=== PATIENT | female | born 1985 | race Caucasian/White ===

== ENCOUNTER → 2022-07-01 07:55 | Outpatient (BNVA) | payer MEDICAID, SELFPAY | PROVIDERS: Visit Provider Obstetrics & Gynecology | DX: N92.0 Excessive and frequent menstruation with regular cycle (principal) | CPT/HCPCS: 76830 ==

== ENCOUNTER → 2022-08-30 09:23 | Outpatient (BNVA) | payer MEDICAID, SELFPAY | PROVIDERS: Visit Provider Obstetrics & Gynecology | DX: N92.0 Excessive and frequent menstruation with regular cycle (principal) | CPT/HCPCS: 88305 ==

== ENCOUNTER → 2022-11-22 10:00 | Outpatient (BNVA) | payer MEDICAID, SELFPAY | PROVIDERS: Visit Provider Obstetrics & Gynecology | DX: Z01.818 Encounter for other preprocedural examination (principal) | CPT/HCPCS: 87624 ==

== ENCOUNTER 2022-12-07 09:06 | Observation (INO) | payer MEDICAID, SELFPAY ==
[2022-12-03 09:11] VITALS: BMI 36.6
--- NOTE | 2022-12-03 09:27 | ANES.PREANE2 ---
Pre-Anesthetic Assessment Height/Weight: Height 1.65 m Weight 99.79 kg Operation Date: 12/07/22 07:00 Proposed Procedures p Laparoscopic assisted vaginal hysterectomy 73632,N81.4(Not Applicable) - Ila Yousif MD Familial anesthetic complications: None Social No alcohol and No tobacco Exam alert, oriented x 3, clear to auscultation bilaterally and regular rate & rhythm Airway Mallampati: Class I Dentition: full Metabolic Morbid Obesity Anesthetic Plan ASA status: 2 Anesthesia: General Risk of > 500 ml blood loss (7ml/kg in children): No Medications/Allergies Home Medications Medication Instructions Recorded Confirmed Last Taken Type calcium 600 mg-D3 800 unit-mag11 1 tab PO DAILY 06/08/22 12/03/22 12/02/22 History 50 [id number]-tye-s.borat tablet diphenhydramine 25 1 tab PO Q6H PRN Pain 06/08/22 12/03/22 Unknown History mg-acetaminophen 500 mg tablet (Tylenol PM Extra Strength) bupropion HCl 300 mg 24 hr tablet, 300 mg PO QAM 12/03/22 12/03/22 12/02/22 History extended release (Wellbutrin XL) Allergies Allergy/AdvReac Type Severity Reaction Status Date / Time ibuprofen Allergy Intermediate hive Verified 08/30/22 08:28 [facility] Anesthesia Medical History Hypertension Ovarian cyst Surgical History History of bilateral salpingectomy (~2018) History of exploratory laparotomy History of gastric bypass Family History Mother Breast cancer Grandmother Breast cancer paternal Diabetes Hypertension Stroke Grandfather No problems noted. Denies family history of Colon cancer Ovarian cancer Heart disease Hypercholesteremia Uterine cancer Thyroid disease Female Reproductive History Date of last menstrual period: 11/07/22 Data Anesthesia Cardiac Studies: No Data to Display
[2022-12-07] VITALS (18 sets, daily range): BP systolic 104–140; BP diastolic 54–94; PULSE 54–85; RESP 16–18; TEMP 36.2–36.9; O2SAT 94–99
[2022-12-07] MEDS: sodium chloride 0.9% 1,000 ML 30 ML IV (06:32)
[2022-12-07] MEDS: acetaminophen 1,000 MG/100 ML PIGGYBACK 400 MG IV (06:33)
[2022-12-07] MEDS: gabapentin 300 mg Capsule PO (06:35)
[2022-12-07] MEDS: phenazopyridine 100 mg Tablet 200 MG PO ×3 (06:35→22:03)
[2022-12-07] MEDS: scopolamine 1.5 Patch 1 PATCH TRANSDERMA (06:36)
[2022-12-07 06:47] LABS: Basophils % 0.5 %; Eosinophils # 0.2 10^3/uL (0.0-0.8); Eosinophils % 3.1 %; Hematocrit 42.4 % (37.0-47.0); Hemoglobin 13.4 g/dL (11.5-15.3); Lymphocytes # 1.4 10^3/uL (0.8-4.8); Mean Corpuscular HGB Conc 31.6 g/dL (30.0-36.0); Mean Corpuscular Hemoglobin 25.6 pg (28.0-34.0); Mean Corpuscular Volume 80.9 fl (81-99); Mean Platelet Volume 9.8 fL (7.4-10.4); Monocytes # 0.5 10^3/uL (0.2-0.9); Monocytes % 6.9 %; Neutrophils # 4.37 10^3/uL (1.8-7.7); Neutrophils % 67.2 %; Nucleated Red Blood Cells % 0 %; Platelet Count 296 10^3/cmm (130-400); Red Blood Count 5.24 10^6/uL (4.1-5.3); Red Cell Distribution Width 11.9 % (12.1-15.1); White Blood Count 6.5 10^3/uL (4.0-10.0)
--- NOTE | 2022-12-07 07:06 | W.PM.OPSUD ---
Surgery/Procedure H&P Update DATE OF PROCEDURE: December 07, 2022 DATE H&P PERFORMED: 12/02/22 H&P UPDATE INFORMATION: I have reviewed H&P completed within last 30 days, I have examined patient prior to procedure and No changes to prior documentation PREOP DIAGNOSIS: uterine prolapse, AUB, pelvic pain PLANNED PROCEDURE: Operation Date: 12/07/22 07:00 Proposed Procedures p Laparoscopic assisted vaginal hysterectomy 57467,N81.4(Not Applicable) - Ila Yousif MD Related Problem List Diagnoses (1) Dysmenorrhea: (2) Hirsutism: (3) Heavy menstrual bleeding:
[2022-12-07 07:07] LABS: Anion Gap 14.1 (5-19); Blood Urea Nitrogen 12 mg/dL (6-20); Calcium 9.4 mg/dL (8.5-10.5); Carbon Dioxide 26 mmol/L (22-29); Chloride 107 mmol/L (98-107); Glomerular Filtration Rate 80.3 mL/min (90-130); Glucose 97 mg/dL (65-115); Osmolality Calculated 296 mOsm/kg (285-295); Potassium 4.1 mmol/L (3.5-5.1); Sodium 143 mmol/L (136-145)
[2022-12-07] MEDS: ceFAZolin 2,000 MG in sodium chloride 0.9% (plus) 50 ML 100 MG IV ×3 (07:07→23:11)
[2022-12-07 07:51] LABS: OR HCG Qualitative Urine Negative (Negative)
[2022-12-07] MEDS: vasopressin 20 unit/mL INJ INJECTION (07:54)
--- NOTE | 2022-12-07 08:36 | P.ANESUD_ITS ---
Pre-Anesthetic Update Pre-Anesthetic Assessment: Date of Surgery/Procedure: 12/07/22 Preop Ana gnosis: uterine prolapse, AUB, pelvic pain Proposed Procedure: Operation Date: 12/07/22 07:00 Proposed Procedures p Laparoscopic assisted vaginal hysterectomy 45192,N81.4(Not Applicable) - Ila Yousif MD Any changes to Pre-Anesthetic Assessment?: No Last Intake: Intake Last Liquid Date 12/06/22 Last Liquid Time 23:00 Last Solid Date 12/06/22 Last Solid Time 20:00 Labs Last 48hrs: Short CBC 12/07/22 Range/Units 06:30 WBC 6.5 (4.0-10.0) 10^3/ uL Hgb 13.4 (11.5-15.3) g/dL Hct 42.4 (37.0-47.0) % MCV 80.9 L (81-99) fl Plt Count 296 (130-400) 10^3/c mm Neut % (Auto) 67.2 % Neut # (Auto) 4.37 (1.8-7.7) 10^3/u L BMP 12/07/22 06:30 Sodium 143 Potassium 4.1 Chloride 107 Carbon Dioxide 26 BUN 12 Creatinine 0.8 Glucose 97 Calcium 9.4 Blood Bank 12/07/22 06:30 Blood Type O Negative Rho(D) Type Negative Antibody Screen Negative Vitals: Temperature 97.8 F 12/07/22 06:26 Temperature Source Temporal Artery S can 12/07/22 06:26 Pulse Rate 65 12/07/22 06:26 Respiratory Rate 18 12/07/22 06:26 Blood Pressure 130/93 12/07/22 06:26 Blood Pressure Liz n 105 12/07/22 06:26 Pulse Oximetry 98 12/07/22 06:26 Oxygen Delivery Me thod Room Air, Nasal C annula 12/07/22 06:26 Exam: Pre-Anes Outpt Exam: alert, oriented x 3, clear to auscultation bilaterally and regular rate & rhythm Cardiac Studies: No Data to Display
--- NOTE | 2022-12-07 09:19 | PM.OP ---
Operative Report Date of procedure: December 07, 2022 Pre-op diagnosis: Preop Diagnosis uterine prolapse, AUB, pelvic pain Post-op diagnosis: same Post-op findings: 10 week sized uterus, normal appearing ovaries Procedure done: LAVH, cystoscopy Specimens removed/disposition: uterus to pathology Surgeon: Ila Yousif Anesthesia: General Estimated blood loss (mL): 300 IV fluids (mL): 1,300 Urine output (mL): 100 Complications: none Condition: stable Disposition: PACU Procedure: The patient was taken to the operating room where general anesthesia was administered and found to be adequate. She was prepped and draped in the normal sterile fashion in the dorsal lithotomy position in [facility]. A Padron catheter was placed. A weighted speculum was placed into the vagina and the anterior lip of the cervix was grasped with a single tooth tenaculum. The Zumi uterine manipulator was placed. The weighted speculum was removed. The gloves were changed and attention was turned to the abdomen. A 5 mm supraumbilical incision was made. Using a 5 mm port with the camera, the port was placed into the abdomen. The abdomen was insufflated. Two low, lateral 5 mm ports were placed on the left and right under direct visualization from the camera. A bilateral salpingectomy had already been performed. The uteroovarian ligaments as well as the round ligaments were ligated. Attention was then turned to the vaginal portion of the procedure. The weighted speculum was placed into the vagina. The zumi manipulator was removed. The single tooth tenaculum was removed and replaced with the gigi's tenaculum. 10 mL of dilute Pitressin was injected at the vesicovaginal junction. A circumferential incision was made at the vesicovaginal junction and the vaginal mucosa reflected cephalad. The posterior peritoneum was entered sharply with the Metzenbaum scissors and the long weighted speculum replaced. Using the Lindsay clamps the uterosacral ligaments were clamped cut and suture-ligated. The anterior peritoneum was entered sharply with the metzenbaum scissors. Then sequentially the uterine arteries and cardinal ligaments were clamped cut and suture-ligated. A single-tooth tenaculum was used to deliver the uterus. The remaining segement of the utero-ovarian ligaments were clamped cut and suture-ligated bilaterally and the specimen was removed. There was good hemostasis with only mild bleeding from the cuff. The peritoneum was closed with a pursestring using 2-0 Vicryl. The vaginal cuff was closed with 0 Vicryl in a running locked pattern incorporating the uterosacral ligaments into the lateral aspects of the vaginal cuff. The Padron catheter was removed and the cystoscope advanced into the bladder. The patient was given pyridium and bilateral spill was noted. There were no injuries or deficits noted in the bladder. The cystoscope was removed and pressure was applied to the bladder in a coughing manner. There was no leakage. The Padron was replaced. Vaginal packing was placed for good hemostasis. The gloves and gowns were changed and attention was turned to the abdomen. The ports were closed with 2-0 monocryl with skin glue. The patient tolerated the procedure well. Sponge lap and needle counts were correct x3. She was taken to the recovery room in stable condition.
[2022-12-07] MEDS: dextrose 5%-lactated ringers 1,000 ML 125 ML IV ×2 (10:05→18:50)
[2022-12-07] MEDS: HYDROcodone-acetaminophen 5-325 mg Tablet PO ×3 (10:40→22:04)
[2022-12-07] MEDS: HYDROmorphone 1 mg/mL INJ 1 mL 1.5 MG IVP (12:09)
--- NOTE | 2022-12-07 13:43 | ANE.PACU2 ---
Inpatient post-anesthesia follow up: Airway intact: Yes Vital signs: Temperature 97.3 F Pulse Rate 71 Respiratory Rate 18 Blood Pressure 133/69 Pulse Oximetry 96 Oxygen Delivery Me thod Room Air Oxygen Flow Rate 6 Fraction of Inspir ed Oxygen Hydration adequate: Yes Nausea and vomiting: No Pain level: 3 Mental status: Baseline
[2022-12-07] MEDS: ondansetron 2 mg/ML SDV 2 mL 4 MG IVP (16:01)
[2022-12-07] MEDS: docusate sodium 100 mg Capsule PO (18:50)
[2022-12-08] MEDS: HYDROcodone-acetaminophen 5-325 mg Tablet PO ×2 (04:15→10:16)
[2022-12-08 04:16] VITALS: BP 122/73; PULSE 97; RESP 16; TEMP 36.9; O2SAT 98
[2022-12-08 05:26] LABS: Hematocrit 34.5 % (37.0-47.0); Mean Corpuscular HGB Conc 31.9 g/dL (30.0-36.0); Mean Corpuscular Hemoglobin 25.8 pg (28.0-34.0); Mean Platelet Volume 9.8 fL (7.4-10.4); Platelet Count 261 10^3/cmm (130-400); Red Blood Count 4.26 10^6/uL (4.1-5.3); White Blood Count 12.5 10^3/uL (4.0-10.0)
[2022-12-08] MEDS: simethicone 80 mg Chew PO (05:26)
[2022-12-08] MEDS: buPROPion XL (24 HR) 300 mg Tablet PO (06:40)
[2022-12-08 09:10] VITALS: BP 135/88; PULSE 92; RESP 15; TEMP 37.7; O2SAT 97
--- NOTE | 2022-12-08 10:15 | PM.DCS ---
Discharge Providers Date of Admission: 12/07/22 09:06 Date of Discharge: December 08, 2022 Attending Provider at Admission: Ila Yousif MD Attending Provider at Discharge: Ila Yousif MD Primary Care Provider: Harris Wylie Diagnoses at Discharge Discharge Diagnosis (1) Dysmenorrhea: Status: Acute (2) Hirsutism: Status: Acute (3) Heavy menstrual bleeding: Status: Acute Reason for Visit Reason for Visit: N81.4 Hospital Course Hospital Course The patient was admitted for surgery. She did well postoperatively and was ready for discharge on day #1 Physical Exam Narrative: She is doing well today. No concerns. Const: COMMON NORMALS: no acute distress, patient oriented x3, healthy appearing, alert and well nourished GENERAL APPEARANCE: cooperative, comfortable, well kempt and well developed ORIENTATION/CONSCIOUSNESS: Yes awake, Yes oriented to person, Yes oriented to place and Yes oriented to time Resp: COMMON NORMALS: normal respiratory effort EFFORT & INSPECTION: Yes able to speak in complete sentences GI: COMMON NORMALS: Soft to palpation and non-tender PALPATION: Yes Soft to palpation Extremity: COMMON NORMALS: no calf tenderness Neuro: COMMON NORMALS: patient oriented x3 SENSORIUM/ORIENTATION: Yes alert, Yes oriented to person, Yes oriented to place and Yes oriented to time Psych: APPEARANCE: Yes well kempt Urinary Catheter Management: Padron: Cath Placed During This Visit: yes, but has since been removed by the nurse Reason for Continuing Indwelling Catheter: Decision to DC Catheter Urinary Catheter Date of Insertion: 12/07/22 Urinary Catheter Time of Insertion: 07:36 Date Urinary Catheter Removed: 12/08/22 Time Urinary Catheter Discontinued: 05:26 Discharge Data Studies Completed and Pending Pending at discharge Category Date Time Status Urine Culture Routine Lab 12/07/22 10:57 Received Pathology: Surgical [PTH] Routine Pth 12/07/22 09:21 Received Laboratory Results WBC 12.5 10^3/uL (4.0-10.0) H 12/08/22 05:12 RBC 4.26 10^6/uL (4.1-5.3) 12/08/22 05:12 Hgb 11.0 g/dL (11.5-15.3) L 12/08/22 05:12 Hct 34.5 % (37.0-47.0) L 12/08/22 05:12 MCV 81.0 fl (81-99) 12/08/22 05:12 MCH 25.8 pg (28.0-34.0) L 12/08/22 05:12 MCHC 31.9 g/dL (30.0-36.0) 12/08/22 05:12 RDW 12.0 % (12.1-15.1) L 12/08/22 05:12 Plt Count 261 10^3/cmm (130-400) 12/08/22 05:12 MPV 9.8 fL (7.4-10.4) 12/08/22 05:12 Neut % (Auto) 67.2 % 12/07/22 06:30 Lymph % (Auto) 22.0 % 12/07/22 06:30 [place] % (Auto) 6.9 % 12/07/22 06:30 Eos % (Auto) 3.1 % 12/07/22 06:30 Baso % (Auto) 0.5 % 12/07/22 06:30 Neut # (Auto) 4.37 10^3/uL (1.8-7.7) 12/07/22 06:30 Lymph # (Auto) 1.4 10^3/uL (0.8-4.8) 12/07/22 06:30 [place] # (Auto) 0.5 10^3/uL (0.2-0.9) 12/07/22 06:30 Eos # (Auto) 0.2 10^3/uL (0.0-0.8) 12/07/22 06:30 Baso # (Auto) 0.0 10^3/uL (0.0-0.1) 12/07/22 06:30 Nucleated RBC % (auto) 0 % 12/07/22 06:30 Nucleated RBCs # 0.0 /100WBC 12/07/22 06:30 Sodium 143 mmol/L (136-145) 12/07/22 06:30 Potassium 4.1 mmol/L (3.5-5.1) 12/07/22 06:30 Chloride 107 mmol/L (98-107) 12/07/22 06:30 Carbon Dioxide 26 mmol/L (22-29) 12/07/22 06:30 Anion Gap 14.1 (5-19) 12/07/22 06:30 BUN 12 mg/dL (6-20) 12/07/22 06:30 Creatinine 0.8 mg/dL (0.5-0.9) 12/07/22 06:30 GFR Calculation 80.3 mL/min (90-130) L 12/07/22 06:30 Glucose 97 mg/dL (65-115) 12/07/22 06:30 Calculated Osmolality 296 mOsm/kg (285-295) H 12/07/22 06:30 Calcium 9.4 mg/dL (8.5-10.5) 12/07/22 06:30 Urine HCG, Qual Negative (Negative) 12/07/22 07:38 Blood Type O Negative 12/07/22 06:30 Rho(D) Type Negative 12/07/22 06:30 Antibody Screen Negative 12/07/22 06:30 Vitals Last Vital Signs Temp 99.8 F H 12/08/22 09:10 Pulse 92 12/08/22 09:10 Resp 15 12/08/22 09:10 BP 135/88 12/08/22 09:10 Pulse Ox 97 12/08/22 09:10 O2 Del Method Room Air 12/08/22 09:10 O2 Flow Rate 6 12/07/22 09:24 Discharge Plan Discharge Patient Disposition: Home Condition: Stable Prescriptions: New hydrocodone-acetaminophen 5-325 mg Tablet 1 tab PO Q4H PRN (Reason: Moderate To Severe Pain) Qty: 30 0RF docusate sodium 100 mg Capsule 100 mg PO BID Qty: 60 0RF Continued [id number] 600 mg calcium- 800 unit-50 mg tablet 1 tab PO DAILY diphenhydramine-acetaminophen [Tylenol PM Extra Strength] 25-500 mg tablet 1 tab PO Q6H PRN (Reason: Pain) bupropion HCl [Wellbutrin XL] 300 mg Tablet Extended Release 24 Hr 300 mg PO QAM Discharge Orders: Discharge Order (Routine); Ordered 12/08/22 Ordered By: Ila Yousif Referrals: Ila Yousif MD [Physician] - 12/13/22 1:30 pm (1 week follow-up w/: 12/13/22 @1:30 6 week follow-up w/: 01/18/23 @12:45) Patient Instructions: Laparoscopic Hysterectomy (DC), OB Discharge Report, OB Laproscopic Surgery - [facility], OB Food/Drug Interaction Guide, Opioid Safety Discharge Attestations Time Spent in Discharge Care*: less than 30 min Quality Metrics Clinical Quality Measures [ No reported AMI, CVA or VTE this stay] Coding Level of Care Code Acute Code for Chg Fwd Diagnoses Dysmenorrhea N94.6 Hirsutism L68.0 Heavy menstrual bleeding N92.0
[2022-12-08] MEDS: phenazopyridine 100 mg Tablet 200 MG PO (10:16)
[2022-12-08] MEDS: docusate sodium 100 mg Capsule PO (10:16)
[2022-12-08 11:00] VITALS: BP 135/88; PULSE 92; RESP 15; TEMP 37.7; O2SAT 97
== END 2022-12-08 11:20 | disposition home or self-care (01) ==
LOC: OBGYN 09:06
PROVIDERS: Anesthesiology; Admitting Provider Obstetrics & Gynecology; PCP Family Medicine; Visit Provider Obstetrics & Gynecology
PROC: 0UT9FZZ Resection of Uterus, Via Natural or Artificial Opening With Percutaneous Endoscopic Assistance (ICD-10-PCS; CPT 58550; principal; 2022-12-07 07:00)
DX: N81.4 Uterovaginal prolapse, unspecified (principal); N94.6 Dysmenorrhea, unspecified; L68.0 Hirsutism; N92.0 Excessive and frequent menstruation with regular cycle; E66.01 Morbid (severe) obesity due to excess calories; Z68.36 Body mass index [BMI] 36.0-36.9, adult; N80.03 Adenomyosis of the uterus
CPT/HCPCS: 58550; 36415; 80048; 81025; 84703; 85025; 85027; 86850; 86900; 87086; 88305; G0378; J0131; J0690; J1100; J1170; J1200; J2250; J2371; J2405; J2704; J2710; J3010; J3490; J7030; J7121

== ENCOUNTER 2024-03-07 08:30 | Outpatient (CLI) | payer BC, MEDICAID, SELFPAY ==
--- NOTE | 2024-03-07 08:30 | MM_ITS ---
WS: [id number] SCREENING DIGITAL TOMOSYNTHESIS MAMMOGRAM WITH CAD HISTORY: Z12.39 - Encounter for other screening for malignant neop... COMPARISON: None available. Bilateral CC and MLO with tomosynthesis views submitted. Synthetic mammography reviewed. Computer aid ed detection analyzed. Breast composition: The breasts are heterogeneously dense, which may obscure small masses. No suspici ous masses, microcalcifications or architectural distortion. MM/MM scr BI tomosynthesis [id number] IMPRESSION: BI-RADS: 1 - Negative FOLLOW UP: 1 Year Follow-up
== END 2024-03-07 08:49 | disposition home or self-care (01) ==
PROVIDERS: PCP Family Medicine; Visit Provider Obstetrics & Gynecology
DX: Z12.31 Encounter for screening mammogram for malignant neoplasm of breast (principal); R92.333 Mammographic heterogeneous density, bilateral breasts
CPT/HCPCS: 77063; 77067

== ENCOUNTER → 2024-06-13 07:56 | Outpatient (BNVA) | payer BC, SELFPAY | PROVIDERS: PCP Family Medicine; Visit Provider Podiatrist Foot & Ankle Surgery | DX: M79.671 Pain in right foot (principal); M79.672 Pain in left foot; M72.2 Plantar fascial fibromatosis; M24.571 Contracture, right ankle; M24.572 Contracture, left ankle | CPT/HCPCS: 73630 ==